=== PATIENT | male | born 1965 | race African-American/Black ===

== ENCOUNTER 2018-04-26 11:04 | Inpatient (IN) | payer MEDICAID ==
[~2018-04-26] VITALS: Ht 175.3 cm; Wt 76.7 kg
--- NOTE | 2018-04-26 11:20 | NUR ---
LUE WEAKNESS, LT NECK PAIN TO L SHOULDER PAIN NON TRAUMATIC THAT STARTED LAST NIGHT. PT AAOX3, VSS. DENIES CP, SOB, DIZZINESS, N/V @ THIS TIME. 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 PT SEEN & EVAL'D BY DR. RODRÍGUEZ. WILL CONT TO MONITOR.
[2018-04-26 11:42] LABS: BASOPHILS # (AUTO) 0.1 /CMM (0.0-0.2); BASOPHILS % (AUTO) 1.3 % (0.0-2.0); EOSINOPHILS % (AUTO) 2.6 % (0.0-6.0); HEMATOCRIT 48 % (39-51); HEMOGLOBIN 15.7 g/dL (13.5-17.5); LYMPHOCYTES # (AUTO) 2.4 /CMM (0.8-4.8); LYMPHOCYTES % (AUTO) 40.9 % (20.0-44.0); MEAN CORPUSCULAR HGB CONC 33 g/dl (31.0-36.0); MEAN CORPUSCULAR VOLUME 94 fL (80-96); MONOCYTES # (AUTO) 0.5 /CMM (0.1-1.30); MONOCYTES % (AUTO) 7.6 % (2.0-12.0); NEUTROPHILS # (AUTO) 2.7 /CMM (1.8-8.9); NEUTROPHILS % (AUTO) 47.6 % (43.0-81.0); PLATELET COUNT (AUTO) 219 /CMM (150-450); RED BLOOD CELL COUNT(AUTO) 5.16 MIL/uL (4.5-6.0); WHITE BLOOD COUNT (AUTO) 5.9 K/uL (4.3-11.0)
[2018-04-26] MEDS ORDERED: RISP1TAB27 PO (11:45)
[2018-04-26] MEDS ORDERED: FLUO20CA36 PO (11:45)
[2018-04-26] MEDS ORDERED: OMEP20CA10 PO (11:45)
[2018-04-26] MEDS ORDERED: TRAZ-182 PO (11:45)
[2018-04-26] MEDS ORDERED: GABA-536 PO (11:45)
[2018-04-26 11:55] LABS: CALCIUM, SERUM 8.8 mg/dL (8.5-10.1); CARBON DIOXIDE 29 mmol/L (21-32); CHLORIDE 106 mmol/L (98-107); CREATININE 0.9 mg/dL (0.6-1.3); GLUCOSE 96 mg/dL (74-106); POTASSIUM 4.1 mmol/L (3.5-5.1); SODIUM SERUM 142 mmol/L (136-145); UREA NITROGEN, BLOOD 11 mg/dL (7-18)
[2018-04-26 11:57] LABS: INR 0.93 (0.85-1.15)
[2018-04-26 12:00] LABS: TROPONIN I < 0.017 ng/mL (0.00-0.056)
[2018-04-26 12:01] LABS: ALANINE AMINOTRANSFERASE 39 U/L (12-78); ALKALINE PHOSPHATASE 51 U/L (46-116); ASPARTATE AMINOTRANSFERASE 19 U/L (15-37); BILIRUBIN,DIRECT 0.1 mg/dL (0.0-0.2); BILIRUBIN,TOTAL 0.3 mg/dL (0.2-1.0); TOTAL PROTEIN, SERUM 7.5 g/dL (6.4-8.2)
[2018-04-26 12:01] LABS: APPEARANCE,URINE Clear (CLEAR); BILIRUBIN,URINE Negative (NEGATIVE); BLOOD, URINE Negative Ery/uL (NEGATIVE); COLOR,URINE Yellow (YELLOW); KETONES,URINE Negative (NEGATIVE); LEUKOCYTE ESTERASE ,URINE Negative (NEGATIVE); NITRITE, URINE Negative (NEGATIVE); PROTEIN,URINE Negative (NEGATIVE); UGLUCOSE Negative (NEGATIVE); UROBILINOGEN,URINE 0.2 EU/dL (0.2)
[2018-04-26 12:04] LABS: ALCOHOL, BLOOD < 3 mg/dL (0-0)
[2018-04-26] MEDS ORDERED: IOHEXOL-350 100 ML VIAL IV ONE (12:21)
[2018-04-26] MEDS ORDERED: CT SWABBABLE VALVE TRANS SET 1 EA INFUS.SET MC ONE (12:21)
[2018-04-26] MEDS ORDERED: IV NS 0.9% 250 ML IV ONE (12:21)
--- NOTE | 2018-04-26 13:11 | NUR ---
CALLED NURSING SUP REQUESTED TELE BED FOR THIS PATIENT
[2018-04-26] MEDS ORDERED: ASPIRIN 81 MG TAB.CHEW PO STA (13:49)
--- NOTE | 2018-04-26 14:05 | NUR ---
PT SITTING UP ON GURNEY USING CELLPHONE. DENIES SOLARES, DIZZINESS, N/V, WEAKNESS @THIS TIME, PT C/O LT SHOULDER PAIN, MD AWARE. WILL CONT TO MONITOR.
--- NOTE | 2018-04-26 14:08 | NUR ---
ADMIT TO ROOM 314 DEPARTMENT CHAIRPERSONCASH BHAKTA
[2018-04-26] MEDS ORDERED: ASPIRIN 81 MG TAB.CHEW ONE (14:14)
[2018-04-26] MEDS ORDERED: ACETAMINOPHEN 325 MG TABLET PO PRN (14:30)
[2018-04-26 15:00] VITALS: BP 135/80
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
--- NOTE | 2018-04-26 15:30 | NUR ---
tele well control instructor: notes pt refused stat labs ordered by dr. hall, stated, "you are not sticking me again." educated pt on stroke and the needs for labs for stroke protocol, but still pt refuses.
[2018-04-26 16:00] VITALS: BP 135/80
--- NOTE | 2018-04-26 16:00 | NUR ---
tele automatic log cut off sawyer: notes pt is dressed and wants to go now as stated; pt wants to go against medical advice without being seen by a physician. educated pt on stroke prevention and protocol and the risks and consequences involving in leaving the hospital at this time, the benefits of continued treatment and hospitalization, and the alternatives, if any, to continued treatment and hospitalization. despite education provided, pt still insisted of going, stated, "i don't want to stay here and i don't want to get admitted in the first place." cn aware. supervisory investigative specialist made aware. dr. hall made aware and informed me that to tell him that the neurologist is on the way to see him. ask pt if he could stay a bit for neurologist to see him, but pt gets easily irritated and still insisted of leaving now. dr. hall notified and made aware.
--- NOTE | 2018-04-26 16:10 | NUR ---
tele front desk host: notes discharged ama instructions given to pt and verbalized understanding re: the risks and consequences involving in leaving the hospital without being seen by a physician. all d'c papers copy given to pt to take to his primary medical doctor. h/l removed with tip intact with no swelling, no bleeding, and no redness noted. Addendum: 04/26/18 at 1643 by DAVONTE ISAAC COST ACCOUNTING ANALYST tele removed.
--- NOTE | 2018-04-26 16:13 | NUR ---
tele senior product designer: notes discharged pt ama via ambulatory with all valuables and d'c papers.
--- NOTE | 2018-04-26 16:30 | NUR ---
tele research editor: notes andrea brandon ([facility], neurologist) here and informed her that pt left against medical advice.
[2018-04-26] MEDS ORDERED: GABAPENTIN 400 MG CAPSULE PO SCH (17:00)
[2018-04-26] MEDS ORDERED: risperiDONE 1 MG TABLET PO SCH (17:00)
[2018-04-26] MEDS ORDERED: BLOOD SUGAR DIAGNOSTIC 1 EACH STRIP IN SCH (17:30)
[2018-04-26 17:44] LABS: THYROID STIMULATING HORMONE 1.409 uIU/mL (0.358-3.74)
[2018-04-26] MEDS ORDERED: TRAZODONE 50 MG TABLET PO SCH (22:00)
[2018-04-26] MEDS ORDERED: ATORVASTATIN 40 MG TABLET PO SCH (22:00)
[2018-04-26] MEDS ORDERED: SIMVASTATIN 10 MG TABLET PO SCH (22:00)
[2018-04-27] MEDS ORDERED: PANTOPRAZOLE 40 MG TABLET.DR PO SCH (07:30)
[2018-04-27] MEDS ORDERED: ASPIRIN EC 325 MG TABLET.DR PO SCH (09:00)
[2018-04-27] MEDS ORDERED: FLUOXETINE HCL 20 MG CAPSULE PO SCH (09:00)
== END 2018-04-26 16:13 | disposition left against medical advice (07) | DRG 47 ==
LOC: ER 11:07 → TELE1 12:57 → TELE 14:12
PROVIDERS: ADMIT Internal Medicine; ATTEND Internal Medicine
DX: G45.9 Transient cerebral ischemic attack, unspecified (principal); G62.9 Polyneuropathy, unspecified; F31.9 Bipolar disorder, unspecified; F41.9 Anxiety disorder, unspecified; R53.1 Weakness; F12.90 Cannabis use, unspecified, uncomplicated; R29.810 Facial weakness
CPT/HCPCS: 36415; 70496-TC; 70498-TC; 71045-TC; 73030-TC; 80048-TC; 80076-TC; 80305; 81000-TC; 83880; 84443-TC; 84484-TC; 85025-TC; 85730-TC; 87081-TC; 87806; A4606; G0378; G0480; J7050; Q9967; Z7610